=== PATIENT | female | born 1945 | race Two or more races ===

== ENCOUNTER → 2022-08-25 | Outpatient (CLI) | payer OTHER, MEDICAID ==
[2022-08-25 14:16] LABS: Urine Bacteria FEW /hpf (None Seen); Urine Blood Negative /uL (Negative); Urine Mucus FEW (None Seen); Urine Specific Gravity 1.022 (1.001-1.035); Urine WBC 49 /hpf (0 - 5)
== END | disposition home or self-care (01) ==
LOC: LAB 13:45
PROVIDERS: ATTEND Urology
DX: N39.9 Disorder of urinary system, unspecified (principal); N39.0 Urinary tract infection, site not specified
CPT/HCPCS: 81001; 87086

== ENCOUNTER 2022-09-05 10:10 | Emergency (ER) | payer OTHER, MEDICAID ==
[~2022-09-05] VITALS: Ht 149.9 cm; Wt 67.7 kg
[2022-09-05 10:28] VITALS: BP 146/80
== END 2022-09-05 15:01 | disposition left against medical advice (07) ==
LOC: ER 10:10
DX: S31.000D Unspecified open wound of lower back and pelvis without penetration into retroperitoneum, subsequent encounter (principal); Z53.21 Procedure and treatment not carried out due to patient leaving prior to being seen by health care provider; X58.XXXD Exposure to other specified factors, subsequent encounter

== ENCOUNTER 2022-09-09 11:16 | Inpatient (IN) | payer OTHER, MEDICAID ==
[~2022-09-09] VITALS: Ht 152.4 cm; Wt 65.3 kg
[2022-09-09 12:15] LABS: Basophils # (auto) 0.1 10 ^3/uL (0-0.2); Basophils % (auto) 1.2 % (0.0-2.0); Eosinophils # (auto) 0.1 10 ^3/uL (0-0.8); Hematocrit 34.7 % (36.0-46.0); Hemoglobin 11.8 g/dL (12.2-16.2); Lymphocytes # (auto) 1.5 10 ^3/uL (0.4-5.4); Lymphocytes % (auto) 17.3 % (10.0-50.0); Mean Corpuscular Hemoglobin 30.3 pg (28.0-32.0); Mean Corpuscular Hgb Conc. 34.1 g/dL (32.0-36.0); Mean Corpuscular Volume 88.7 fL (80.0-100.0); Monocytes # (auto) 0.5 10 ^3/uL (0-1.3); Monocytes % (auto) 6.1 % (0.0-12.0); Neutrophils # (auto) 6.6 10 ^3/uL (1.6-8.6); Neutrophils % (auto) 74.4 % (37.0-80.0); Red Blood Cells 3.91 10^6/uL (4.0-5.20); Red Cell Distribution Width 16.3 % (11.8-14.3); White Blood Cell 8.9 10^3/uL (4.4-10.8)
[2022-09-09 12:29] LABS: Albumin 3.8 g/dL (3.4-5.0); Calcium 9.4 mg/dL (8.5-10.1); Potassium 4.4 mmol/L (3.5-5.1)
[2022-09-09 12:34] LABS: BUN/Creatinine Ratio 22.6; Bilirubin, Total 0.6 mg/dL (0.2-1.0); CRP High Sensitivity 0.31 mg/dL (< 0.3); Total Protein 7.5 g/dL (6.4-8.2)
[2022-09-09] MEDS ORDERED: IOHEXOL 300 MG/ML 100ML BOTTLE IJ ONE (13:04)
[2022-09-09] MEDS ORDERED: HYDROcodone-ACET 5/325MG TAB PO ONE (15:45)
[2022-09-09] MEDS ORDERED: PANTOPRAZOLE 40 MG/10 ML VIAL INJ IV ONE (16:30)
[2022-09-09] MEDS ORDERED: DEXTROSE (50%) 50ML SYRG IV PRN (16:30)
[2022-09-09] MEDS ORDERED: ACETAMINOPHEN 325 MG TAB PO PRN (16:30)
[2022-09-09] MEDS ORDERED: cefTRIAXone 1GM/50ML D5W 50 ML IV ONE (16:45)
[2022-09-09] MEDS ORDERED: VANCOMYCIN PER PHARMACY 0 MG IV SCH (16:45)
[2022-09-09] MEDS ORDERED: ENAL2.5T7 PO (16:49)
[2022-09-09] MEDS ORDERED: TRAM50TA2 PO (16:49)
[2022-09-09] MEDS ORDERED: HYDR1TAB97 PO (16:49)
[2022-09-09] MEDS ORDERED: OMEP-260 PO (16:49)
[2022-09-09] MEDS ORDERED: ATOR10TA52 PO (16:49)
[2022-09-09] MEDS ORDERED: METF-869 PO (16:49)
[2022-09-09] MEDS ORDERED: MUPI2OIN2 TOP (16:49)
[2022-09-09] MEDS ORDERED: CEPH500T PO (16:49)
[2022-09-09] MEDS ORDERED: VANCOMYCIN 1GM/250ML 250 ML IV ONE (17:15)
[2022-09-09 17:47] LABS: Cholesterol 138 mg/dL (< 200); HDL Cholesterol 63 mg/dL (40-59); LDL Cholesterol 68 mg/dL (< 100); Triglycerides 109 mg/dL (< 150)
[2022-09-09] MEDS: SODIUM CHLORIDE 0.9% 1,000 ML IV SCH (18:35)
[2022-09-09] MEDS: ACCU-CHEK COMFORT CURVE STRIP VI SCH ×2 (18:36→22:00)
[2022-09-09] MEDS: InsuLIN REG 1unit/0.01ml Soln (100units/ml) SC SCH ×2 (18:43→22:00)
[2022-09-09] MEDS: ASCORBIC ACID 500 MG TAB PO SCH (22:00)
[2022-09-10] MEDS: InsuLIN REG 1unit/0.01ml Soln (100units/ml) SC SCH (02:39)
[2022-09-10] MEDS: ACCU-CHEK COMFORT CURVE STRIP VI SCH (02:40)
[2022-09-10 06:01] LABS: Basophils # (auto) 0.1 10 ^3/uL (0-0.2); Basophils % (auto) 0.9 % (0.0-2.0); Eosinophils # (auto) 0.1 10 ^3/uL (0-0.8); Eosinophils % (auto) 1.6 % (0.0-7.0); Hematocrit 29.7 % (36.0-46.0); Lymphocytes # (auto) 1.4 10 ^3/uL (0.4-5.4); Lymphocytes % (auto) 19.9 % (10.0-50.0); Mean Corpuscular Hemoglobin 30.2 pg (28.0-32.0); Mean Corpuscular Hgb Conc. 33.5 g/dL (32.0-36.0); Monocytes # (auto) 0.6 10 ^3/uL (0-1.3); Monocytes % (auto) 8.5 % (0.0-12.0); Neutrophils # (auto) 4.9 10 ^3/uL (1.6-8.6); Neutrophils % (auto) 69.1 % (37.0-80.0); Nucleated Red Blood Cells % 0.1 %; Red Cell Distribution Width 16.1 % (11.8-14.3); White Blood Cell 7.1 10^3/uL (4.4-10.8)
[2022-09-10 06:19] LABS: Potassium 4.4 mmol/L (3.5-5.1)
[2022-09-10 06:28] LABS: Albumin 3.1 g/dL (3.4-5.0); BUN/Creatinine Ratio 19.6; Bilirubin, Total 0.6 mg/dL (0.2-1.0); Calcium 8.6 mg/dL (8.5-10.1); Total Protein 6.9 g/dL (6.4-8.2)
[2022-09-10] MEDS: cefTRIAXone 1GM/50ML D5W 50 ML IV SCH (09:23)
[2022-09-10] MEDS: SODIUM CHLORIDE 0.9% 1,000 ML IV SCH (09:23)
[2022-09-10] MEDS ORDERED: PANTOPRAZOLE 40 MG/10 ML VIAL INJ IV SCH (10:00)
[2022-09-10] MEDS: ZINC SULFATE 220mg CAP or TAB PO SCH (11:29)
[2022-09-10] MEDS: MULTIPLE VITAMIN TAB PO SCH (11:29)
[2022-09-10] MEDS: ASCORBIC ACID 500 MG TAB PO SCH ×2 (11:29→21:36)
[2022-09-10] MEDS: VANCOMYCIN 750mg/250ml 250 ML IV SCH (12:35)
[2022-09-10] MEDS ORDERED: PANTOPRAZOLE 40 MG TAB PO ONE (12:45)
[2022-09-10 16:13] LABS: Urine Bacteria FEW /hpf (None Seen); Urine Blood TRACE /uL (Negative); Urine Mucus FEW (None Seen); Urine Specific Gravity 1.009 (1.001-1.035); Urine WBC 3 /hpf (0 - 5)
[2022-09-10 16:19] VITALS: BP 126/63
[2022-09-10 22:00] VITALS: BP 136/58
[2022-09-11 05:00] VITALS: BP 123/50
[2022-09-11] MEDS: VANCOMYCIN 750mg/250ml 250 ML IV SCH ×2 (05:08→23:50)
[2022-09-11 08:00] VITALS: BP 118/61
[2022-09-11 09:00] VITALS: BP 118/61
[2022-09-11] MEDS: ASCORBIC ACID 500 MG TAB PO SCH ×2 (09:12→21:53)
[2022-09-11] MEDS: cefTRIAXone 1GM/50ML D5W 50 ML IV SCH (09:12)
[2022-09-11] MEDS: PANTOPRAZOLE 40 MG TAB PO SCH (09:12)
[2022-09-11] MEDS: ZINC SULFATE 220mg CAP or TAB PO SCH (09:12)
[2022-09-11] MEDS: MULTIPLE VITAMIN TAB PO SCH (09:12)
[2022-09-11 17:00] VITALS: BP 118/48
[2022-09-11 22:00] VITALS: BP 123/55
[2022-09-12 05:00] VITALS: BP 119/49
[2022-09-12 09:00] VITALS: BP 122/49
[2022-09-12] MEDS: PANTOPRAZOLE 40 MG TAB PO SCH (10:14)
[2022-09-12] MEDS: ASCORBIC ACID 500 MG TAB PO SCH (10:14)
[2022-09-12] MEDS: ZINC SULFATE 220mg CAP or TAB PO SCH (10:14)
[2022-09-12] MEDS: MULTIPLE VITAMIN TAB PO SCH (10:14)
[2022-09-12] MEDS: cefTRIAXone 1GM/50ML D5W 50 ML IV SCH (10:14)
[2022-09-12 13:00] VITALS: BP 134/71
[2022-09-12 17:00] VITALS: BP 124/39
[2022-09-12] MEDS ORDERED: DOXY-286 PO (17:52)
[2022-09-12] MEDS: VANCOMYCIN 750mg/250ml 250 ML IV SCH (18:00)
[2022-09-12 18:35] VITALS: BP 124/39
== END 2022-09-12 20:45 | disposition home or self-care (01) | DRG 594 ==
LOC: ER 11:16 → OVERFLOW 16:27 → WEST WING 09-10 13:53
PROVIDERS: ADMIT Nurse Practitioner Family; ATTEND Internal Medicine
DX: L89.329 Pressure ulcer of left buttock, unspecified stage (principal); D64.9 Anemia, unspecified; E11.9 Type 2 diabetes mellitus without complications; E66.01 Morbid (severe) obesity due to excess calories; E78.5 Hyperlipidemia, unspecified; I10 Essential (primary) hypertension; K44.9 Diaphragmatic hernia without obstruction or gangrene; R32 Unspecified urinary incontinence; Z85.41 Personal history of malignant neoplasm of cervix uteri; C53.9 Malignant neoplasm of cervix uteri, unspecified; Z90.710 Acquired absence of both cervix and uterus; Z20.822 Contact with and (suspected) exposure to COVID-19; L89.319 Pressure ulcer of right buttock, unspecified stage
CPT/HCPCS: 36415; 71045; 74177; 80053; 80061; 80202; 81001; 82565; 83036; 83605; 84443; 85025; 85652; 86141; 86850; 86900; 86901; 87426; 96365; 96375; C9113; G0378; J0696

== ENCOUNTER 2023-02-21 20:14 | Emergency (ER) | payer OTHER, MEDICAID ==
[~2023-02-21] VITALS: Ht 152.4 cm; Wt 67.3 kg
[~2023-02-21 20:14] MED LIST: ATOR10TA52 PO; DOXY-286 PO; OMEP1CAP70 PO
[2023-02-21 20:30] VITALS: BP 142/81; PULSE 95; RESP 20; O2SAT 93
[2023-02-21 21:12] LABS: Basophils # (auto) 0.1 10 ^3/uL (0-0.2); Basophils % (auto) 0.3 % (0.0-2.0); Eosinophils # (auto) 0.1 10 ^3/uL (0-0.8); Eosinophils % (auto) 0.6 % (0.0-7.0); Hematocrit 38.1 % (36.0-46.0); Hemoglobin 12.6 g/dL (12.2-16.2); Lymphocytes # (auto) 1.3 10 ^3/uL (0.4-5.4); Lymphocytes % (auto) 7.9 % (10.0-50.0); Mean Corpuscular Hgb Conc. 33.1 g/dL (32.0-36.0); Mean Corpuscular Volume 87.6 fL (80.0-100.0); Monocytes # (auto) 0.9 10 ^3/uL (0-1.3); Monocytes % (auto) 5.4 % (0.0-12.0); Neutrophils # (auto) 14.2 10 ^3/uL (1.6-8.6); Neutrophils % (auto) 85.8 % (37.0-80.0); Nucleated Red Blood Cells % 0.2 %; Red Blood Cells 4.35 10^6/uL (4.0-5.20); Red Cell Distribution Width 15.6 % (11.8-14.3); White Blood Cell 16.5 10^3/uL (4.4-10.8)
[2023-02-21 21:31] LABS: Albumin 3.5 g/dL (3.4-5.0); Potassium 4.3 mmol/L (3.5-5.1)
[2023-02-21 21:34] LABS: BUN/Creatinine Ratio 19.5 (10.0-20.0); Bilirubin, Total 0.8 mg/dL (0.2-1.0); Total Protein 7.4 g/dL (6.4-8.2)
== END 2023-02-22 01:36 | disposition left against medical advice (07) ==
LOC: ER 20:16
DX: K80.20 Calculus of gallbladder without cholecystitis without obstruction (principal); K57.90 Diverticulosis of intestine, part unspecified, without perforation or abscess without bleeding; K44.9 Diaphragmatic hernia without obstruction or gangrene; R10.30 Lower abdominal pain, unspecified; R30.0 Dysuria; E11.9 Type 2 diabetes mellitus without complications; E78.5 Hyperlipidemia, unspecified; I10 Essential (primary) hypertension; Z90.710 Acquired absence of both cervix and uterus
CPT/HCPCS: 36415; 74176; 80053; 83690; 85025

== ENCOUNTER 2024-05-02 11:16 | Inpatient (IN) | payer OTHER, MEDICAID ==
[~2024-05-02] VITALS: Ht 137.2 cm; Wt 56.0 kg
[2024-05-02 14:32] LABS: Basophils # (auto) 0 10 ^3/uL (0-0.2); Basophils % (auto) 0.4 % (0.0-2.0); Eosinophils # (auto) 0.1 10 ^3/uL (0-0.8); Eosinophils % (auto) 0.7 % (0.0-7.0); Hematocrit 37.3 % (36.0-46.0); Hemoglobin 12.7 g/dL (12.2-16.2); Lymphocytes # (auto) 1.2 10 ^3/uL (0.4-5.4); Lymphocytes % (auto) 11.6 % (10.0-50.0); Mean Corpuscular Hemoglobin 30.2 pg (28.0-32.0); Mean Corpuscular Hgb Conc. 34.2 g/dL (32.0-36.0); Mean Corpuscular Volume 88.2 fL (80.0-100.0); Monocytes # (auto) 0.7 10 ^3/uL (0-1.3); Monocytes % (auto) 6.8 % (0.0-12.0); Neutrophils # (auto) 8.5 10 ^3/uL (1.6-8.6); Neutrophils % (auto) 80.5 % (37.0-80.0); Platelet Count (auto) 303 10^3/uL (140-450); Red Blood Cells 4.23 10^6/uL (4.0-5.20); White Blood Cell 10.5 10^3/uL (4.4-10.8)
[2024-05-02 14:53] LABS: Alanine Aminotransferase 14 U/L (7-40); Albumin 4.6 g/dL (3.2-4.8); Alkaline Phosphatase 126 U/L (46-116); Anion Gap 9 (5-15); Aspartate Aminotransferase 23 U/L (13-40); BUN/Creatinine Ratio 18.6 (10.0-20.0); Bilirubin, Total 0.9 mg/dL (0.2-1.0); Blood Urea Nitrogen 18 mg/dL (9-23); Calcium 10.2 mg/dL (8.7-10.4); Carbon Dioxide 22 mmol/L (20-31); Chloride 108 mmol/L (98-107); Glucose 142 mg/dL (74-106); Potassium 4.1 mmol/L (3.5-5.1); Sodium 139 mmol/L (136-145); Total Protein 7.7 g/dL (5.7-8.2)
[2024-05-02] MEDS: HYDROcodone-ACET 5/325MG TAB PO ONE (17:41)
[2024-05-02] MEDS ORDERED: NITROGLYCERIN 0.4 MG SL TAB SL PRN (18:15)
[2024-05-02] MEDS ORDERED: DOCUSATE SOD 100 MG CAP PO PRN (18:15)
[2024-05-02] MEDS ORDERED: VANCOMYCIN PER PHARMACY 0 MG IV SCH (18:15)
[2024-05-02] MEDS ORDERED: MORPHINE SULFATE INJ 2 MG/ml SYRG IV PRN (18:15)
[2024-05-02] MEDS ORDERED: ONDANSETRON HCL 4 MG/2 ML VIAL IV PRN (18:15)
[2024-05-02 20:00] VITALS: PULSE 117; RESP 17; O2SAT 94
[2024-05-02] MEDS: SODIUM CHLORIDE 0.9% 1,000 ML IV SCH (20:22)
[2024-05-02] MEDS: VANCOMYCIN 1GM/200ML 200 ML IV ONE (20:22)
[2024-05-02 21:00] VITALS: BP 152/69; PULSE 113; RESP 18; TEMP 98.4; O2SAT 94
[2024-05-03 01:00] VITALS: BP 117/48; PULSE 112; RESP 18; TEMP 98.6; O2SAT 94
[2024-05-03 05:00] VITALS: BP 124/52; PULSE 100; RESP 18; TEMP 98.2; O2SAT 95
[2024-05-03 06:37] LABS: Basophils # (auto) 0 10 ^3/uL (0-0.2); Basophils % (auto) 0.4 % (0.0-2.0); Eosinophils # (auto) 0.1 10 ^3/uL (0-0.8); Eosinophils % (auto) 1.6 % (0.0-7.0); Hematocrit 29.8 % (36.0-46.0); Hemoglobin 10.4 g/dL (12.2-16.2); Lymphocytes # (auto) 1.2 10 ^3/uL (0.4-5.4); Lymphocytes % (auto) 14.9 % (10.0-50.0); Mean Corpuscular Hemoglobin 30.6 pg (28.0-32.0); Mean Corpuscular Hgb Conc. 34.7 g/dL (32.0-36.0); Mean Corpuscular Volume 88.2 fL (80.0-100.0); Monocytes # (auto) 0.6 10 ^3/uL (0-1.3); Monocytes % (auto) 7.9 % (0.0-12.0); Neutrophils # (auto) 5.8 10 ^3/uL (1.6-8.6); Neutrophils % (auto) 75.2 % (37.0-80.0); Platelet Count (auto) 219 10^3/uL (140-450); Red Blood Cells 3.38 10^6/uL (4.0-5.20); Red Cell Distribution Width 15.2 % (11.8-14.3); White Blood Cell 7.8 10^3/uL (4.4-10.8)
[2024-05-03 07:01] LABS: Alanine Aminotransferase 20 U/L (7-40); Alkaline Phosphatase 98 U/L (46-116); Anion Gap 9 (5-15); Blood Urea Nitrogen 21 mg/dL (9-23); Calcium 9.3 mg/dL (8.7-10.4); Carbon Dioxide 23 mmol/L (20-31); Chloride 109 mmol/L (98-107); Glucose 113 mg/dL (74-106); Potassium 3.7 mmol/L (3.5-5.1); Sodium 141 mmol/L (136-145)
[2024-05-03 07:02] LABS: Albumin 3.7 g/dL (3.2-4.8); Aspartate Aminotransferase 68 U/L (13-40)
[2024-05-03 09:00] VITALS: BP 135/71; PULSE 109; RESP 17; TEMP 98.3; O2SAT 94
[2024-05-03] MEDS: HYDROcodone-ACET 5/325MG TAB PO PRN (09:38)
[2024-05-03] MEDS: PANTOPRAZOLE 40 MG TAB PO SCH (09:39)
[2024-05-03 13:00] VITALS: BP 122/56; PULSE 95; RESP 18; TEMP 97.8; O2SAT 96
[2024-05-03] MEDS: AMPICILLIN & SULBACTAM SODIUM 3 GM in SODIUM CHL 0.9% 100 ML IV SCH (15:45)
[2024-05-03 15:46] LABS: Erythrocyte Sedimentation Rate 42 mm/hr (0-20)
[2024-05-03 17:00] VITALS: BP 134/61; PULSE 96; RESP 18; TEMP 97.3; O2SAT 97
[2024-05-03] MEDS: VANCOMYCIN 1GM/200ML 200 ML IV SCH (20:00)
[2024-05-03 21:00] VITALS: BP 118/47; PULSE 93; RESP 18; TEMP 97.5; O2SAT 92
[2024-05-04 01:00] VITALS: BP 115/37; PULSE 97; RESP 17; TEMP 98.2; O2SAT 94
[2024-05-04 05:00] VITALS: BP 114/43; PULSE 77; RESP 18; TEMP 98.1; O2SAT 94
[2024-05-04 07:15] LABS: Anion Gap 9 (5-15); Carbon Dioxide 21 mmol/L (20-31); Chloride 111 mmol/L (98-107); Potassium 3.9 mmol/L (3.5-5.1); Sodium 141 mmol/L (136-145)
[2024-05-04 07:16] LABS: Calcium 8.9 mg/dL (8.7-10.4)
[2024-05-04 07:21] LABS: BUN/Creatinine Ratio 16.2 (10.0-20.0); Blood Urea Nitrogen 12 mg/dL (9-23); Glucose 107 mg/dL (74-106)
[2024-05-04 08:49] VITALS: BP 118/52; PULSE 90; RESP 19; TEMP 98; O2SAT 95
[2024-05-04] MEDS ORDERED: ENAL1TAB42 PO (11:56)
[2024-05-04] MEDS ORDERED: METO-289 PO (11:56)
[2024-05-04 13:00] VITALS: BP 130/81; PULSE 100; RESP 19; TEMP 97.7; O2SAT 96
[2024-05-04 17:00] VITALS: BP 120/58; PULSE 92; RESP 19; TEMP 98.6; O2SAT 96
[2024-05-05 05:00] VITALS: BP 151/67; PULSE 83; RESP 16; TEMP 97.5; O2SAT 96
[2024-05-05 09:00] VITALS: BP 141/71; PULSE 85; RESP 12; TEMP 98.1; O2SAT 95
[2024-05-05] MEDS: ENALAPRIL MALEATE 2.5 MG TAB PO SCH (09:56)
[2024-05-05] MEDS: METOPROLOL SUCCINATE XL 50 MG TAB PO SCH (09:56)
[2024-05-05 13:00] VITALS: BP 154/56; PULSE 86; RESP 16; TEMP 98; O2SAT 97
[2024-05-05 16:53] VITALS: BP 119/74; PULSE 76; RESP 14; TEMP 98; O2SAT 96
[2024-05-05 20:00] VITALS: PULSE 80; RESP 18; O2SAT 95
[2024-05-05 21:00] VITALS: BP 158/49; PULSE 80; RESP 18; TEMP 98.5; O2SAT 95
[2024-05-06] VITALS (7 sets, daily range): BP systolic 129–164; BP diastolic 46–74; PULSE 75–90; RESP 15–18; TEMP 97.8–98.5; O2SAT 94–97
[2024-05-06 06:20] LABS: Potassium 3.9 mmol/L (3.5-5.1)
[2024-05-06 06:21] LABS: Calcium 9.1 mg/dL (8.7-10.4)
[2024-05-06 06:26] LABS: BUN/Creatinine Ratio 11.4 (10.0-20.0)
[2024-05-06 06:28] LABS: Albumin 3.5 g/dL (3.2-4.8); Phosphorus 3.2 mg/dL (2.4-5.1)
[2024-05-06] MEDS: VANCOMYCIN 1GM/200ML 200 ML IV SCH (16:28)
[2024-05-07 01:00] VITALS: BP 154/67; PULSE 78; RESP 18; TEMP 98.8; O2SAT 93
[2024-05-07 05:00] VITALS: BP 175/72; PULSE 89; RESP 20; TEMP 97.9; O2SAT 96
[2024-05-07] MEDS: cloNIDine HCL 0.1 MG TAB PO ONE (05:06)
[2024-05-07 07:00] VITALS: BP 143/60; PULSE 79
[2024-05-07 07:34] LABS: Basophils # (auto) 0 10 ^3/uL (0-0.2); Basophils % (auto) 0.7 % (0.0-2.0); Eosinophils # (auto) 0.2 10 ^3/uL (0-0.8); Eosinophils % (auto) 2.5 % (0.0-7.0); Hematocrit 30.3 % (36.0-46.0); Hemoglobin 10.4 g/dL (12.2-16.2); Lymphocytes # (auto) 1.4 10 ^3/uL (0.4-5.4); Lymphocytes % (auto) 20.1 % (10.0-50.0); Mean Corpuscular Hgb Conc. 34.4 g/dL (32.0-36.0); Mean Corpuscular Volume 87.4 fL (80.0-100.0); Monocytes # (auto) 0.5 10 ^3/uL (0-1.3); Monocytes % (auto) 7.7 % (0.0-12.0); Neutrophils # (auto) 4.8 10 ^3/uL (1.6-8.6); Nucleated Red Blood Cells % 0.2 %; Platelet Count (auto) 232 10^3/uL (140-450); Red Blood Cells 3.47 10^6/uL (4.0-5.20); Red Cell Distribution Width 15.2 % (11.8-14.3)
[2024-05-07 07:51] LABS: Chloride 108 mmol/L (98-107); Potassium 3.6 mmol/L (3.5-5.1); Sodium 141 mmol/L (136-145)
[2024-05-07 07:52] LABS: Calcium 9.3 mg/dL (8.7-10.4)
[2024-05-07 07:57] LABS: BUN/Creatinine Ratio 14.6 (10.0-20.0); Blood Urea Nitrogen 12 mg/dL (9-23); Glucose 102 mg/dL (74-106)
[2024-05-07 08:30] LABS: Anion Gap 8 (5-15); Carbon Dioxide 25 mmol/L (20-31)
[2024-05-07 09:00] VITALS: BP 148/60; PULSE 73; RESP 16; TEMP 99.1; O2SAT 96
[2024-05-07] MEDS ORDERED: AMPI500C9 PO (12:39)
[2024-05-07] MEDS ORDERED: LEVO500T91 PO (12:39)
[2024-05-07 13:00] VITALS: BP 142/75; PULSE 72; RESP 16; TEMP 98.8; O2SAT 94
[2024-05-07 17:00] VITALS: BP 164/85; PULSE 76; RESP 18; TEMP 97.8; O2SAT 94
== END 2024-05-07 17:40 | disposition home or self-care (01) | DRG 602 ==
LOC: ER 11:25 → EAST 18:09 → OVERFLOW 18:15 → EAST 21:20
PROVIDERS: ADMIT Internal Medicine; ATTEND Nurse Practitioner Acute Care
DX: L03.317 Cellulitis of buttock (principal); L89.323 Pressure ulcer of left buttock, stage 3; E66.9 Obesity, unspecified; I10 Essential (primary) hypertension; E78.00 Pure hypercholesterolemia, unspecified; E11.9 Type 2 diabetes mellitus without complications; Z85.43 Personal history of malignant neoplasm of ovary; Z85.41 Personal history of malignant neoplasm of cervix uteri; Z91.018 Allergy to other foods; Z79.899 Other long term (current) drug therapy; Z68.35 Body mass index [BMI] 35.0-35.9, adult
CPT/HCPCS: 36415; 74176; 80048; 80053; 80069; 80202; 82962; 83036; 85025; 85652; 87077; 87186; 87205; 96365; G0378